=== PATIENT | male | born 1940 | race Caucasian/White ===

== ENCOUNTER → 2016-09-11 | Outpatient (CLI) | payer MEDICARE, BC ==
[~2016-09-11] MED LIST: ALBUTEROL17 G1 IH; ARICEPT5 M1 PO; ASPIRIN81 M1 PO; ASPIRINEC PO; CENTRUM SILVER PO; CENTRUM SILVER1 EAC2 PO; CENTRUM SILVER1 EACH PO; CIPRO PO; DILTIAZEM 24HR120 MG PO; DILTIAZEM 24HR180 MG PO; DONEPEZIL HCL10 MG PO; FLORASTOR250 M1; FLORASTOR250 M1 PO; GLUCOTROL PO; HUMALOG100 U/M1 IJ; HUMALOG100 U/ML IJ; HUMALOG100 U/ML SUBQ; HYDROCODON-ACE1 EAC7 PO; HYZAAR PO; HYZAAR1 TAB 100- PO; LANTUS100 U/ML IJ; LEVEMIR SQ; LEVOTHYROXINE75 MCG PO; LEVOXYL50 MC1 PO; LOSARTAN-HCTZ1 EAC3 PO; LUMIGAN2.5 ML OU; MACROBID100 MG PO; MACRODANTIN; METFORMIN; METFORMIN PO; MUCINEX1200 MG/BO PO; NITROFURANTOIN100 M3 PO; NORCO1 TAB 10/3 PO; OMEPRAZOLE20 M1 PO; SIMVASTATIN40 MG PO; SINGULAIR PO; SUPER B COMPLEX1 CAP PO; SYMBICORT INH; SYNTHROID75 MCG PO; TESSALON200 MG PO; VIBRAMYCIN100 M1 PO; VITAMIN C500 M5 PO; VITAMIN D1000 UNI1 PO
[2016-09-11 12:17] LABS: BASOPHIL# 0.1 X10e3 (0-0.3); BASOPHIL% 1.3 % (0-2.5); EOSINOPHIL# 0.4 X10e3 (0-0.7); EOSINOPHIL% 5.1 % (0.0-7.0); HEMATOCRIT 37.8 % (38.0-50.0); HEMOGLOBIN 12.8 gm/dL (13.0-16.0); LYMPHOCYTE# 2.1 X10e3 (1.0-3.5); LYMPHOCYTE% 27.5 % (17.0-45.0); MEAN CELL VOLUME 89.5 FL (83-96); MEAN CORPUSCULAR HEMOGLOBIN 30.3 PG (28-34); MEAN CORPUSCULAR HGB CONC 33.9 g/dL (30-36); MEAN PLATELET VOLUME 8.5 FL (6.5-11.5); MONOCYTE# 0.6 X10e3 (0-1.0); NEUTROPHIL# 4.4 X10e3 (1.5-7.1); NEUTROPHIL% 58.1 % (40-75); PLATELET COUNT 247 X10e3 (140-420); RED BLOOD COUNT 4.23 X10e (3.90-5.60); RED CELL DISTRIBUTION WIDTH 14.1 % (11.0-15.5); WHITE BLOOD COUNT 7.6 X10e3 (4.0-10.5)
[2016-09-11 12:20] LABS: DIFF IND NO
[2016-09-11 12:35] LABS: BUN/CREATININE RATIO 18.66; CALCIUM SERUM 8.2 mg/dL (8.4-10.2); CREATININE SERUM 1.5 mg/dL (0.6-1.4); GLOM FILT RATE Estimated 44.9 mL/min (>60); POTASSIUM 3.8 mmol/L (3.5-5.1)
== END | disposition home or self-care (01) ==
LOC: SLAB 12:03
PROVIDERS: Internal Medicine Nephrology
DX: N18.3 Chronic kidney disease, stage 3 (moderate) (principal)
CPT/HCPCS: 36415; 80048; 85025

== ENCOUNTER → 2016-10-01 | Outpatient (CLI) | payer MEDICARE, BC | END | disposition home or self-care (01) | LOC: SLAB 13:31 | DX: E87.1 Hypo-osmolality and hyponatremia (principal) | CPT/HCPCS: 36415; 84295 ==